=== PATIENT | female | born 2000 | race Caucasian/White ===

== ENCOUNTER 2024-03-04 06:26 | Emergency (ER) | payer BC ==
--- OUTSIDE RECORDS SUMMARY | 2024-03-04 06:29 | XMS REPORT | Continuity of Care Document ---
Author Name Unknown Address [address] [facility] [place] [id number] [facility] thconnect Address [address] [facility] [place] [address] Care Team Providers Care Brickmason Name Role Phone PCP, PATIENT DOES NOT HAVE A Primary Care Physic stephanie Unavailable FAUSTINO MONTEMAYOR Attending Clinician Unavailable FAUSTINO MONTEMAYOR Attending Clinician Unavailable MARYSE OLIVIA Attending Clinician Unavailable Maryse Daniels Attending Clinician Unknown, Attending Attending Clinician Unavailab le Payers Payer Name Policy Type Policy Number Effective Date Expirati on Date Source [facility] [id number] 2023 00:00:00 Allergies, Adverse Reactions, Alerts Allergy Name Allergy Type Status Severity Reaction(s) Onset Date Inactive Date Treating Clinician Comments Source NO KNOWN ALLERGIE S Drug Class Active [facility] Social History Social Habit Start Date Stop Date Quantity Comments Source Sexual [facility] Tobacco use and exposure 2023-07-22 00:00:00 2023-07-22 00:00:00 Smokeless tobacco non-user [facility] [place] [place] Alcohol intake 2023-07-22 00:00:00 2023-07-22 00:00:00 Lifetime non-drinker (finding) [facility] [place] [place] History of Social function 2023-07-22 00:00:00 2023-07-22 00:00:[address] [facility] [place] [place] Sex Assigned At 2000 00:00:00 2000 00:00:[address] [facility] [place] [place] Smoking Status Start Date Stop Date Source Never smoked tobacco [facility] Medications Ordered Medication Name Filled Medication Name Start Date Stop Date Current Medication? Ordering Clinician Indication Dosage Frequency Signature (SIG) Comments Components Source mupirocin 2 % ointment 07-22 00:00: 00 08-02 05:59 :00 No [id number] Apply to area(s) 3 (three) times daily for 10 days. [facility] cephALEXin 500 mg capsule 07-22 00:00: 00 07-28 05:59 :00 No [id number] 500mg Take 1 capsule by mouth 4 (four) times daily for 5 days. [facility] Immunizations Ordered Immunization Name Filled Immunization Name Date Status Comments Source SARS-COV-2 COVID-19 PFIZER VACCINE Unknown Completed [facility] [place] [place] Influenza Virus Vaccine Unknown Completed [facility] [place] [place] Flu Injectable MDCK Quadrivalent Unknown Completed [facility] [place] [place] Influenza Virus Vaccine Quad IM 3+ YRS Unknown Completed [facility] Influenza Virus Vaccine Quad IM 3+ YRS Unknown Completed [facility] Influenza Virus Vaccine Quad IM 3+ YRS Unknown Completed [facility] Influenza Virus Vaccine Quad IM 3+ YRS Unknown Completed [facility] Influenza Virus Vaccine Quad IM Multi-dose 6+ MO Unknown Completed [facility] [place] [place] MMR Unknown Completed [facility] [place] [place] MMR Unknown Completed [facility] [place] [place] Meningococcal Polysaccharide (groups A, C, Y and W-135) conjugate vaccine (MCV4P) Unknown Completed [facility] [place] [place] IPV Unknown Completed [facility] [place] [place] TDAP Unknown Completed [facility] [place] [place] Varicella (varivax)(chicken pox) Unknown Completed [facility] Varicella (varivax)(chicken pox) Unknown Completed [facility] Typhoid Vaccine, Vi Capsular Polysaccharide, IM Unknown Completed [facility] Adenovirus, NOS Unknown Completed [facility] Vital Signs Vital Name Observation Time Observation Value Comments S ource Systolic blood pressure 2023-07-22 19:56:00 101 mm[Hg] [facility] Diastolic blood pressure 2023-07-22 19:56:00 71 mm[Hg] [facility] Heart rate 2023-07-22 19:56:00 80 /min [facility] Body temperature 2023-07-22 19:56:[address] [facility] [place] [place] Body height 2023-07-22 19:56:00 175.3 cm [facility] Body weight 2023-07-22 19:56:00 101.787 kg [facility] BMI 2023-07-22 19:56:00 33.14 kg/m2 [facility] Oxygen saturation in Arterial blood by Pulse oximetry 2023-07-22 19:56:00 98 /min [place] [facility] Encounters Start Date/Time End Date/Time Encounter Type Admission Type Attending Clinicians Care Facility Care Department Encounter ID Source 2023-07-22 13:40:00 2023-07-22 14:19:35 Outpatient R MARYSE OLIVIA [facility] [id number] [facility] 2023-07-22 13:40:00 2023-07-22 14:19:35 Urgent Care Maryse Olivia Unknown, Attending [facility] [id number] [facility]
[2024-03-04] MEDS ORDERED: NA CHLORIDE 0.9% 1,000 ML ONE (07:09)
[2024-03-04] MEDS ORDERED: ACETAMINOPHEN 500 MG TAB ONE (07:18)
[2024-03-04 07:32] LABS: Specific Gravity 1.015 (1.005-1.030)
[2024-03-04 07:33] LABS: Absolute Basophils 0.1 K/uL (0-0.5); Absolute Eosinophils 0.1 K/uL (0-0.5); Absolute Lymphocytes (CBC) 2.1 K/uL (0.7-4.9); Absolute Monocytes 0.6 K/uL (0.1-1.3); Absolute Neutrophil 6.3 K/uL (1.8-8.0); Basophils % 0.8 % (0-1.3); Hematocrit 37.2 % (36.0-45.0); Hemoglobin 12.5 g/dL (12.0-15.0); Lymphocytes % 22.9 % (15.3-44.8); MCH 27.1 pg (27.0-35.0); MCHC 33.7 g/dL (32.0-36.0); MCV 80.5 fL (80-100); MPV 8.1 fL (7.6-11.3); Monocytes % 6.6 % (3.3-12.3); Neutrophils % 68.7 % (41.7-73.7); Platelets 251 thou/uL (152-406); RBC Red Blood Cell Count 4.62 M/uL (3.86-4.86); Red Cell Distribution Width 13.7 % (12.1-15.2)
[2024-03-04 07:34] LABS: Specific Gravity 1.015 (1.005-1.030); Sqamous Epithelial <5 /HPF (None Seen); Urine Bacteria None Seen /HPF (<20); Urine Bilirubin NEGATIVE (Negative); Urine Blood 3+ (OVER) (Negative); Urine Clarity Extremely Turbid (Clear); Urine Color Colorless (Yellow); Urine Culture Reflex Order NOT NEEDED; Urine Glucose NEGATIVE (Negative); Urine Ketones NEGATIVE (Negative); Urine Microscopic Reflex YN ORDER UMIC; Urine Mucus Slight /HPF (None Seen); Urine Nitrite NEGATIVE (Negative); Urine Protein TRACE (Negative); Urine RBC >50 /HPF (None Seen); Urine Urobilinogen Normal (Normal); Urine WBC <5 /HPF (<5)
[2024-03-04 07:44] LABS: Anion Gap 11.7 mEq/L (5.0-15.0); Potassium 3.7 mEq/L (3.5-5.1)
--- NOTE | 2024-03-04 08:02 | RAD REPORT ---
EXAM DESCRIPTION: US - Transvaginal OB - 03/04/2024 7:14 am CLINICAL HISTORY: with vaginal bleeding and abdominal pain COMPARISON: None. FINDINGS: The uterus measures 8 x 4 x 4 centimeters. The endometrial stripe measures 15 millimeters . A gestational sac is not seen. Ovaries are normal in size and echotexture.. The right and left adnexa unremarkable No significant free fluid IMPRESSION: Nonvisualization of a gestational sac within the endometrium. These findings could represent an early intrauterine in which the gestational sac is not se en. Incomplete report and even an ectopic can also result in this appearance. This all shou ld be correlated clinically and with serial beta HCG levels. Followup endovaginal sonogram in 1 week recommended
--- NOTE | 2024-03-04 08:38 | ER ---
Nurse's Notes [facility] Name: Aimee Coronado Age: 23 yrs Sex: Female : 2000 Arrival Date: 03/04/2024 Time: 06:26 Bed 19 Private MD: Diagnosis: First trimester vaginal bleeding Presentation: 03/04 06:49 Chief complaint: Patient states: Bleeding that started last night around 9 pm woke up vc1 cramping, has went through 2 pads. Coronavirus screen: Client denies travel out of the [place] in the last 14 days. At this time, the client does not indicate any symptoms associated with coronavirus-19. Ebola Screen: Patient negative for fever greater than or equal to 101.5 degrees Fahrenheit, and additional compatible Ebola Virus Disease symptoms Patient denies exposure to infectious person. Patient denies travel to an Ebola-affected area in the 21 days before illness onset. No symptoms or risks identified at this time. Initial Sepsis Screen: Does the patient meet any 2 criteria? No. Patient's initial sepsis screen is negative. Does the patient have a suspected source of infection? No. Patient's initial sepsis screen is negative. Risk Assessment: Do you want to hurt yourself or someone else? Patient reports no desire to harm self or others. Onset of symptoms was March 03, 2024 at 21:00. 06:49 Method Of Arrival: Ambulatory vc1 06:49 Acuity: DAVID 3 kb3 Triage Assessment: 06:54 General: Appears in no apparent distress. Behavior is calm, cooperative, appropriate vc1 for age. Pain: Complains of pain in abdomen. EENT: No deficits noted. No signs and/or symptoms were reported regarding the EENT system. Neuro: Level of Consciousness is awake, alert, obeys commands, Oriented to person, place, time, situation, Appropriate for age. Cardiovascular: No deficits noted. Respiratory: Airway is patent Respiratory effort is even, unlabored, Respiratory pattern is regular, symmetrical. GI: Abdomen is non-distended. : Reports vaginal bleeding that is bright red. Derm: Skin is intact, is healthy with good turgor, Skin is dry, Skin temperature is warm. 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 - Infectious Disease History:: Denies. - Social history:: Smoking status: Patient denies any tobacco usage or history of. Screenin:53 [facility] ED Fall Risk Assessment (Adult) History of falling in the last 3 months, vc1 including since admission No falls in past 3 months (0 pts) Confusion or Disorientation No (0 pts) Intoxicated or Sedated No (0 pts) Impaired Gait No (0 pts) Mobility Assist Device Used No (0 pt) Altered Elimination No (0 pt) Score/Fall Risk Level 0 - 2 = Low Risk Oriented to surroundings, Maintained a safe environment, Educated pt \T\ family on fall prevention, incl call for assistance when getting out of bed. Abuse screen: Denies threats or abuse. Nutritional screening: No deficits noted. Tuberculosis screening: No symptoms or risk factors identified. Assessment: 07:24 General: Appears in no apparent distress. Behavior is calm, cooperative. Pain: mb9 Complains of pain in pelvis. Neuro: [place] Agitation-Sedation Scale (RASS): 0 - Alert and Calm Level of Consciousness is awake, alert, obeys commands, Oriented to person, place, time, situation, Appropriate for age. Cardiovascular: Patient's skin is warm and dry. Respiratory: Airway is patent Respiratory effort is even, unlabored, Respiratory pattern is regular, symmetrical. GI: Abdomen is round non-distended, Bowel sounds present X 4 quads. Abd is soft Abdomen is tender to palpation in suprapubic area. : Urine is blood tinged. : Reports vaginal bleeding that is with clots, light flow. EENT: No signs and/or symptoms were reported regarding the EENT system. Derm: Skin is pink, warm \T\ dry. Musculoskeletal: Range of motion: intact in all extremities. 08:20 Reassessment: No changes from previously documented assessment. Patient and/or family mb9 updated on plan of care and expected duration. Pain level reassessed. Patient is alert, oriented x 3, equal unlabored respirations, skin warm/dry/pink. Vital Signs: 06:49 BP 122 / 82; Pulse 79; Resp 15; Temp 98.6; Pulse Ox 100% ; Weight 88.45 kg; Height 5 vc1 ft. 9 in. ; 08:20 BP 114 / 78; Pulse 71; Resp 16; Pulse Ox 99% on R/A; mb9 08:51 BP 137 / 72; Pulse 77; Resp 18; Pulse Ox 100% on R/A; ar6 06:49 Body Mass Index 28.80 (88.45 kg, 175.26 cm) vc1 ED Course: 06:32 Patient arrived in ED. gm2 06:37 Jesse Luke MD is Attending Physician. [facility] 06:51 Triage completed. vc1 07:16 US Transvaginal Ob In Process Unspecified. EDMS 07:19 Initial lab(s) drawn, by ri, sent to lab. Urine collected: clean catch specimen, zm cloudy, tea colored. Inserted saline lock: 20 gauge in right antecubital area, using aseptic technique. Blood collected. Flushed with 10 mL NS. 07:20 Abo/rh Typing Sent. zm 07:20 Basic Metabolic Panel Sent. zm 07:20 CBC with Diff Sent. zm 07:20 Test, Urine Sent. zm 07:20 Quantitative Hcg Sent. zm 07:20 Urinalysis w/ reflexes Sent. zm 07:23 Myla Chapa, RN is Primary Nurse. mb9 07:27 Arm band placed on. mb9 07:27 Placed in gown. Bed in low position. Call light in reach. Side rails up X 1. Provided mb9 Education on: press call light if needing anything. Client placed on continuous cardiac and pulse oximetry monitoring. NIBP monitoring applied. classroom monitor on. 07:28 No provider procedures requiring assistance completed. mb9 07:37 Attending Physician role handed off by Jesse Luke MD rt 07:37 Vasiliy Suh MD is Attending Physician. rt 08:53 IV discontinued, intact, bleeding controlled, No redness/swelling at site. Pressure ar6 dressing applied. Administered Medications: 07:24 Drug: NS 0.9% IV 1000 ml IV at 1 bolus Per protocol; 1000 mL bolus Route: IV; Rate: 1 mb9 bolus; Site: right antecubital; 08:19 Follow up: Response: No adverse reaction; IV Status: Completed infusion mb9 08:52 Follow up: Response: No adverse reaction; IV Status: Completed infusion; IV Intake: ar6 1000ml 07:24 Drug: Acetaminophen PO 1000 mg PO once Route: PO; mb9 08:19 Follow up: Response: No adverse reaction mb9 08:51 Follow up: BP 137 / 72; Pulse 77 bpm; Resp 18 bpm; Pulse Ox 100% RA; Response: No ar6 adverse reaction Medication: 07:26 VIS not applicable for this client. mb9 Intake: 08:52 IV: 1000ml; Total: 1000ml. ar6 Outcome: 08:37 Discharge ordered by MD. rt 08:52 Discharged to home ambulatory, ar6 08:52 Condition: good 08:52 Discharge instructions given to patient, significant other, Instructed on discharge instructions, follow up and referral plans. Demonstrated understanding of instructions, follow-up care, 08:56 Patient left the ED. ar6 Signatures: Dispatcher [employer] EDJesse Cui MD MD cha Calcote, Vanessa RN RN vc1 Angle Vanessa Kelly, RN RN kb3 Sammi, Myla Nielsen RN RN mb9 Vasiliy Suh MD MD rt Mitchell, Ginger 2 Zonia Clements, RN RN ar6 Corrections: (The following items were deleted from the chart) 06:54 06:53 LMP 01/24/2024, Verified, EDC 10/30/2024, Gestational age from LMP: 5 vc1 weeks 5 days vc1 07:55 06:49 Acuity: DAVID 4 vc1 kb3
--- NOTE | 2024-03-04 08:38 | EDPHYS ---
Physician Documentation [facility] Name: Aimee Coronado Age: 23 yrs Sex: Female : 2000 Arrival Date: 03/04/2024 Time: 06:26 Bed 19 Private MD: ED Physician Vasiliy Suh HPI: 03/04 07:09 This 23 yrs old Female presents to ER via Ambulatory with complaints of kaela Vaginal Bleeding, + Preg <12wks. 07:09 The patient presents to the emergency department with vaginal bleeding. The estimated kaela gestational age is 5 weeks. course: care: at a clinic. Previous pregnancies: the patient has never been . The patient has not experienced similar symptoms in the past. 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 - Infectious Disease History:: Denies. - Social history:: Smoking status: Patient denies any tobacco usage or history of. ROS: 07:13 Constitutional: Negative for fever, chills, and weight loss, Eyes: Negative for injury, kaela pain, redness, and discharge, ENT: Negative for injury, pain, and discharge, Neck: Negative for injury, pain, and swelling, Cardiovascular: Negative for chest pain, palpitations, and edema, Respiratory: Negative for shortness of breath, cough, wheezing, and pleuritic chest pain, Abdomen/GI: Negative for abdominal pain, nausea, vomiting, diarrhea, and constipation, Back: Negative for injury and pain, MS/Extremity: Negative for injury and deformity, Skin: Negative for injury, rash, and discoloration, Neuro: Negative for headache, weakness, numbness, tingling, and seizure, Psych: Negative for depression, anxiety, suicide ideation, homicidal ideation, and hallucinations, Allergy/Immunology: Negative for hives, rash, and allergies, Endocrine: Negative for neck swelling, polydipsia, polyuria, polyphagia, and marked weight changes, Hematologic/Lymphatic: Negative for swollen nodes, abnormal bleeding, and unusual bruising, 07:13 : Positive for vaginal bleeding, Exam: 07:13 Constitutional: This is a well developed, well nourished patient who is awake, alert, kaela and in no acute distress. Head/Face: Normocephalic, atraumatic. Eyes: Pupils equal round and reactive to light, extra-ocular motions intact. Lids and lashes normal. Conjunctiva and sclera are non-icteric and not injected. Cornea within normal limits. Periorbital areas with no swelling, redness, or edema. ENT: Nares patent. No nasal discharge, no septal abnormalities noted. Tympanic membranes are normal and external auditory canals are clear. Oropharynx with no redness, swelling, or masses, exudates, or evidence of obstruction, uvula midline. Mucous membranes moist. Neck: Trachea midline, no thyromegaly or masses palpated, and no cervical lymphadenopathy. Supple, full range of motion without nuchal rigidity, or vertebral point tenderness. No Meningismus. Chest/axilla: Normal chest wall appearance and motion. Nontender with no deformity. No lesions are appreciated. Cardiovascular: Regular rate and rhythm with a normal S1 and S2. No gallops, murmurs, or rubs. Normal PMI, no JVD. No pulse deficits. Respiratory: Lungs have equal breath sounds bilaterally, clear to auscultation and percussion. No rales, rhonchi or wheezes noted. No increased work of breathing, no retractions or nasal flaring. Abdomen/GI: Soft, non-tender, with normal bowel sounds. No distension or tympany. No guarding or rebound. No evidence of tenderness throughout. Back: No spinal tenderness. No costovertebral tenderness. Full range of motion. Skin: Warm, dry with normal turgor. Normal color with no rashes, no lesions, and no evidence of cellulitis. MS/ Extremity: Pulses equal, no cyanosis. Neurovascular intact. Full, normal range of motion. Neuro: Awake and alert, GCS 15, oriented to person, place, time, and situation. Cranial nerves II-XII grossly intact. Motor strength 5/5 in all extremities. Sensory grossly intact. Cerebellar exam normal. Normal gait. Psych: Awake, alert, with orientation to person, place and time. Behavior, mood, and affect are within normal limits. Vital Signs: 06:49 BP 122 / 82; Pulse 79; Resp 15; Temp 98.6; Pulse Ox 100% ; Weight 88.45 kg; Height 5 vc1 ft. 9 in. ; 08:20 BP 114 / 78; Pulse 71; Resp 16; Pulse Ox 99% on R/A; mb9 08:51 BP 137 / 72; Pulse 77; Resp 18; Pulse Ox 100% on R/A; ar6 06:49 Body Mass Index 28.80 (88.45 kg, 175.26 cm) vc1 MDM: 06:37 Patient medically screened. [facility] 07:14 Differential diagnosis: Data reviewed: vital signs, nurses notes, lab test result(s), [facility] radiologic studies, ultrasound. Consideration of Admission/Observation Escalation of care including admission/observation considered. I considered the following discharge prescriptions or medication management in the emergency department Medications were administered in the Emergency Department. See MAR. Independent interpretation of the following test(s) in the Emergency Department Radiology Department Ultrasound: My interpretation is vag probe. Test considered but Not performed: MRI: no mri. Historians other than the Patient: Spouse/Significant Other: well informed. Care significantly affected by the following chronic conditions: none. Counseling: I had a detailed discussion with the patient and/or guardian regarding the historical points, exam findings, and any diagnostic results supporting the discharge/admit diagnosis, lab results, radiology results, the need for outpatient follow up, for definitive care, 09:12 ED course: Reassessed the patient, went over results of all labs, imaging. Instructed rt the patient to return in 48 hours. Informed the patient that ectopic is not ruled out. Discussed recommendations for repeat sonogram.. 03/04 06:39 Order name: Abo/rh Typing; Complete Time: 08:38 [facility] 03/04 06:39 Order name: Basic Metabolic Panel; Complete Time: 08:07 [facility] 03/04 06:39 Order name: CBC with Diff; Complete Time: 08:07 [facility] 03/04 06:39 Order name: Test, Urine; Complete Time: 07:33 [facility] 03/04 06:39 Order name: Quantitative Hcg; Complete Time: 08:07 [facility] 03/04 06:39 Order name: Urinalysis w/ reflexes; Complete Time: 07:37 [facility] 03/04 06:39 Order name: US Transvaginal Ob; Complete Time: 08:07 [facility] 03/04 06:39 Order name: IV Saline Lock; Complete Time: 07:20 [facility] 03/04 06:39 Order name: Labs collected and sent; Complete Time: 07:20 [facility] 03/04 06:39 Order name: NPO; Complete Time: 07:08 [facility] Administered Medications: 07:24 Drug: NS 0.9% IV 1000 ml IV at 1 bolus Per protocol; 1000 mL bolus Route: IV; Rate: 1 mb9 bolus; Site: right antecubital; 08:19 Follow up: Response: No adverse reaction; IV Status: Completed infusion mb9 08:52 Follow up: Response: No adverse reaction; IV Status: Completed infusion; IV Intake: ar6 1000ml 07:24 Drug: Acetaminophen PO 1000 mg PO once Route: PO; mb9 08:19 Follow up: Response: No adverse reaction mb9 08:51 Follow up: BP 137 / 72; Pulse 77 bpm; Resp 18 bpm; Pulse Ox 100% RA; Response: No ar6 adverse reaction Disposition Summary: 03/04/24 08:37 Discharge Ordered Notes: Location: Home rt Problem: new rt Symptoms: have improved rt Condition: Stable rt Diagnosis - First trimester vaginal bleeding rt Followup: rt - With: Private Physician - When: 48 Hours - Reason: Repeat Beta-HCG (48 Hours) Discharge Instructions: - Discharge Summary Sheet kaela - Miscarriage kaela - Threatened Miscarriage kaela - Vaginal Bleeding During , First Trimester kaela - Ectopic rt Forms: - Medication Reconciliation Form rt - Antibiotic Education rt - Prescription Opioid Use rt - Patient Portal Instructions rt - Leadership Thank You Letter rt Signatures: Dispatcher [employer] Jesse Montesinos MD MD cha Calcote, Vanessa RN RN vc1 Myla Chapa RN RN mb9 Vasiliy Suh MD MD rt Zonia Clements RN ar6 Corrections: (The following items were deleted from the chart) 06:39 06:39 ABO/RH TYPING+BB.LAB.BRZ ordered. EDMS EDMS 06:39 06:39 BASIC METABOLIC PANEL+C.LAB.BRZ ordered. EDMS EDMS 06:39 06:39 CBC+H.LAB.BRZ ordered. EDMS EDMS 06:39 06:39 Test, Urine+UC.LAB.BRZ ordered. EDMS EDMS :39 06:39 QUANTITATIVE HCG+C.LAB.BRZ ordered. EDMS EDMS :39 06:39 Urinalysis+U.LAB.BRZ ordered. EDMS EDMS
[2024-03-04 09:06] VITALS: TEMP 98.6
[2024-03-04 09:21] VITALS: BP 137/72; O2SAT 100
== END 2024-03-04 08:56 | disposition home or self-care (01) ==
LOC: ER 06:26
DX: O46.91 Antepartum hemorrhage, unspecified, first trimester (principal); Z3A.01 Less than 8 weeks gestation of pregnancy
CPT/HCPCS: 85025; 81001; 80048; 36415; 86900; 81025; 86901; 84702; 76817; 96360; 99285; J7030